=== PATIENT | male | born 1940 | race Caucasian/White ===

== ENCOUNTER → 2020-10-30 | Outpatient (CLI) | payer MEDICARE | END | disposition home or self-care (01) | LOC: RAD 09:39 | PROVIDERS: ATTEND Orthopaedic Surgery | DX: M16.0 Bilateral primary osteoarthritis of hip (principal); M17.0 Bilateral primary osteoarthritis of knee; M25.462 Effusion, left knee ==

== ENCOUNTER 2021-10-02 08:46 | Emergency (ER) | payer MEDICARE ==
[~2021-10-02] VITALS: Ht 172.7 cm; Wt 77.1 kg
[2021-10-02] MEDS ORDERED: TYLENOL325 M1 PO (11:06)
== END 2021-10-02 11:30 | disposition home or self-care (01) ==
LOC: ED 08:46
DX: S52.592A Other fractures of lower end of left radius, initial encounter for closed fracture (principal); I10 Essential (primary) hypertension; E78.00 Pure hypercholesterolemia, unspecified; Z91.013 Allergy to seafood; Z88.2 Allergy status to sulfonamides; W18.39XA Other fall on same level, initial encounter; Y93.89 Activity, other specified; Y92.89 Other specified places as the place of occurrence of the external cause; Y99.8 Other external cause status

== ENCOUNTER → 2021-10-28 | Outpatient (CLI) | payer MEDICARE ==
[~2021-10-28] MED LIST: ASPIRIN CHEWABL81 MG PO; ATENOLOL25 MG PO; CARDURA8 M1 PO; CRESTOR40 M1 PO; GLIPIZIDE5 MG PO; LEVOTHYROXINE150 MCG PO; LOSARTAN-HCTZ1 EAC2 PO; METFORMIN HYDR500 MG PO; NIFEDIPINE ER30 M1 PO; TYLENOL325 M1 PO; ZEGERID 40 MG1 EACH PO
== END | disposition home or self-care (01) ==
LOC: ORTHO 01:24
PROVIDERS: ATTEND Orthopaedic Surgery
DX: M19.032 Primary osteoarthritis, left wrist (principal); S52.572D Other intraarticular fracture of lower end of left radius, subsequent encounter for closed fracture with routine healing; X58.XXXD Exposure to other specified factors, subsequent encounter

== ENCOUNTER → 2021-11-27 | Outpatient (CLI) | payer MEDICARE | END | disposition home or self-care (01) | LOC: ORTHO 01:47 | PROVIDERS: ATTEND Orthopaedic Surgery | DX: S52.572D Other intraarticular fracture of lower end of left radius, subsequent encounter for closed fracture with routine healing (principal); S52.592D Other fractures of lower end of left radius, subsequent encounter for closed fracture with routine healing; X58.XXXD Exposure to other specified factors, subsequent encounter ==